=== PATIENT | male | born 1975 | race Asian ===

== ENCOUNTER 2018-06-18 00:03 | Inpatient (IN) | payer SELFPAY ==
[~2018-06-18] VITALS: Ht 180.3 cm; Wt 100.9 kg
[2018-06-18] MEDS ORDERED: PANTOPRAZOLE SODIUM 40 MG/VIAL IV STA (00:23)
[2018-06-18] MEDS ORDERED: SODIUM CHLORIDE 0.9% 1,000 ML IV ONE (00:23)
[2018-06-18 01:53] LABS: EOSINOPHILS % 1.1 % (0.0-5.0); HEMATOCRIT. 30.2 % (42.0-52.0); HEMOGLOBIN. 9.8 g/dL (14.0-18.0); LYMPHOCYTES % 24.1 % (20.0-50.0); MEAN CORPUSCULAR HEMOGLOBIN 24.5 pg (28.0-32.0); MEAN CORPUSCULAR VOLUME 75.8 fL (80.0-94.0); MEAN PLATELET VOLUME 8.7 fl (7.4-10.4); MONOCYTES % 7.6 % (2.0-8.0); NEUTROPHILS % 66.2 % (40.0-76.0); PLATELET 250 x1000/uL (130-400); RED BLOOD CELL COUNT 3.98 mill/uL (4.7-6.1); RED CELL DISTRIBUTION WIDTH 15.3 % (11.6-14.6)
[2018-06-18 01:55] LABS: CHLORIDE 109 mEq/L (98-107)
[2018-06-18 01:59] LABS: INR 1.1; PARTIAL THROMBOPLASTIN TIME 22.7 sec (23.4-31.0); PROTHROMBIN TIME 11.4 sec (9.1-11.1)
[2018-06-18 03:35] VITALS: BP 125/74
[2018-06-18] MEDS ORDERED: MORPHINE SULFATE 4 MG/ML CPJ (NOT FOR IM USE) IV PRN (04:45)
[2018-06-18] MEDS ORDERED: ONDANSETRON HCL 4MG/2ML INJ IV PRN (04:45)
[2018-06-18] MEDS: DEXT 5%/0.45% NACL 1000ML 1,000 ML IV SCH ×2 (05:17→21:32)
[2018-06-18 08:00] VITALS: BP 114/73
[2018-06-18] MEDS ORDERED: PANTOPRAZOLE SODIUM 40 MG/VIAL IV SCH (09:00)
[2018-06-18 12:00] VITALS: BP 135/65
[2018-06-18] MEDS ORDERED: INFLUENZA VIRUS VACCINE(AFLURIA) 0.5ML SYR IM ONE (12:00)
[2018-06-18 13:13] LABS: HEMATOCRIT 30.1 % (42.0-52.0); HEMOGLOBIN 9.9 g/dL (14.0-18.0)
[2018-06-18 13:46] LABS: CHLORIDE 108 mEq/L (98-107)
[2018-06-18 13:58] LABS: TOTAL IRON BINDING CAPACITY 341 ug/dL (250-450)
[2018-06-18 14:05] LABS: FOLIC ACID (FOLATE) SERUM 17.8 ng/mL (>5.38)
[2018-06-18] MEDS ORDERED: SODIUM CHLORIDE 0.9% 10ML VIAL ONE (14:09)
[2018-06-18] MEDS ORDERED: SIMETHICONE 40 MG/0.6 ML 30ML ONE (14:52)
[2018-06-18] MEDS ORDERED: MIDAZOLAM HCL 5 MG/5 ML VIAL ONE (15:36)
[2018-06-18] MEDS ORDERED: FENTANYL CITRATE/PF 50MCG/ML 2ML VIAL ONE (15:37)
[2018-06-18] MEDS ORDERED: MIDAZOLAM HCL 5 MG/5 ML VIAL IV PRN (15:45)
[2018-06-18] MEDS ORDERED: FENTANYL CITRATE/PF 50MCG/ML 2ML VIAL IV PRN (15:46)
[2018-06-18 16:30] VITALS: BP 142/87
[2018-06-18] MEDS: PANTOPRAZOLE SODIUM 40 MG/VIAL IV SCH (17:54)
[2018-06-18 19:22] LABS: HEMATOCRIT 28.1 % (42.0-52.0); HEMOGLOBIN 8.9 g/dL (14.0-18.0)
[2018-06-18 20:00] VITALS: BP 130/78
[2018-06-18] MEDS ORDERED: ACETAMINOPHEN 325MG TABLET PO PRN (21:00)
[2018-06-19] VITALS: BP 119/84
[2018-06-19 00:44] LABS: HEMOGLOBIN 8.7 g/dL (14.0-18.0)
[2018-06-19 02:52] LABS: CLARITY URINE CLEAR (CLEAR); COLOR URINE YELLOW (YELLOW); KETONES URINE NEGATIVE (NEGATIVE); LEUKOCYTE ESTERASE URINE NEGATIVE (NEGATIVE); NITRITE URINE NEGATIVE (NEGATIVE); OCCULT BLOOD URINE NEGATIVE (NEGATIVE); PROTEIN URINE NEGATIVE (NEGATIVE); SPECIFIC GRAVITY URINE 1.027 (1.005-1.030); UROBILINOGEN URINE 0.2 E.U./dL (0.2-1.0)
[2018-06-19 04:00] VITALS: BP 109/67
[2018-06-19 07:12] LABS: EOSINOPHILS % 2.7 % (0.0-5.0); HEMATOCRIT. 26.5 % (42.0-52.0); HEMOGLOBIN. 8.7 g/dL (14.0-18.0); LYMPHOCYTES % 29.6 % (20.0-50.0); MEAN CORPUSCULAR HEMOGLOBIN 25.1 pg (28.0-32.0); MEAN CORPUSCULAR VOLUME 76.2 fL (80.0-94.0); MEAN PLATELET VOLUME 8.4 fl (7.4-10.4); MONOCYTES % 7.7 % (2.0-8.0); PLATELET 195 x1000/uL (130-400); RED BLOOD CELL COUNT 3.48 mill/uL (4.7-6.1); RED CELL DISTRIBUTION WIDTH 15.5 % (11.6-14.6)
[2018-06-19 07:36] LABS: CHLORIDE 108 mEq/L (98-107)
[2018-06-19 08:00] VITALS: BP 126/67
[2018-06-19] MEDS: PANTOPRAZOLE SODIUM 40 MG/VIAL IV SCH ×2 (08:55→17:20)
[2018-06-19 12:10] VITALS: BP 121/79
[2018-06-19 16:00] VITALS: BP 109/70
[2018-06-19 16:38] VITALS: BP 126/67
== END 2018-06-19 17:50 | disposition home or self-care (01) | DRG 241 ==
LOC: ER 00:03 → 5WST 02:52 → EDBEDREQTM 02:53 → EDBEDREQ 02:53 → ENRESERV 03:08
PROVIDERS: ADMIT Hospitalist; ATTEND Hospitalist
PROC: 0DB78ZX Excision of Stomach, Pylorus, Via Natural or Artificial Opening Endoscopic, Diagnostic (ICD-10-PCS; principal; 2018-06-18 15:00)
DX: K26.4 Chronic or unspecified duodenal ulcer with hemorrhage (principal); E88.09 Other disorders of plasma-protein metabolism, not elsewhere classified; D50.0 Iron deficiency anemia secondary to blood loss (chronic); K44.9 Diaphragmatic hernia without obstruction or gangrene; G43.909 Migraine, unspecified, not intractable, without status migrainosus; K29.60 Other gastritis without bleeding; T39.395A Adverse effect of other nonsteroidal anti-inflammatory drugs [NSAID], initial encounter; Y92.89 Other specified places as the place of occurrence of the external cause; Z79.899 Other long term (current) drug therapy; Z87.891 Personal history of nicotine dependence
CPT/HCPCS: 36415; 71045; 76700; 80048; 80053; 81003; 82270; 82607; 82728; 82746; 83540; 83550; 83690; 84484; 85014; 85018; 85025; 85610; 85730; 86850; 86900; 88305; 88313; 90686; 93005; 99285; A4216; C9113; J2250; J3010; J3490; J7030; J7040